=== PATIENT | female | born 1945 | race Caucasian/White ===

== ENCOUNTER 2018-01-03 11:05 | Emergency (ER) | payer MEDICARE, OTHER ==
--- NOTE | 2018-01-03 11:57 | ED.PDOC ---
History of Present Illness - General Chief Complaint: General Stated Complaint: Visual changes, ble swelling Time Seen by Provider: 01/03/18 11:32 Source: patient - History of Present Illness Initial Comments: SHE HASN'T SEEN A PHYSICIAN IN YEARS. TWELVE DAYS AGO SHE NOTED BLURRY VISION FROM THE LEFT SIDE AND LEFT SIDED PARESTHESIAS. AT TIME SHE WAS CONFUSED AND FORGETFUL AND ALSO NOTED WAS SLURRED SPEECH. THE SON AT THE BEDSIDE VOICES THAT THE SPEECH IS BETTER TODAY. THE LEFT SIDED PARESTHESIAS ALSO SEEM TO BE IMPROVED. THE PATIENT VOICES THAT LAST SUNDAY SHE WAS RUNNING A FEVER. Allergies/Adverse Reactions: Allergies NO KNOWN ALLERGY Allergy (Verified 01/03/18 11:26) Home Medications: Ambulatory Orders NK [NK] 01/03/18 Past Medical History (General) - Patient Medical History Hx Stroke: No Hx Congestive Heart Failure: No Hx Diabetes: No Hx MRSA: No Surgical History: cholecystectomy, Hysterectomy, other - Vaccination History Hx Influenza Vaccination: No Hx Pneumococcal Vaccination: No - Social History Hx Tobacco Use: Yes Family Medical History - Family History Mother Living Status: Hx Cardiac Disease: Yes Hx Family Diabetes: Yes Progress - Progress Progress: 01/03/18 14:05 THE PATIENT CONTINUES WITH BLURRY VISION. I HAVE DISCUSSED THE CASE WITH DR. LULU GIBBS FROM [facility]. AND HE HAS ACCEPTED THE PATIENT. - Results/Orders Results/Orders: CT OF THE BRAIN IS RESULTED: RIGHT OCCIPITAL EDEMA VS ISCHEMIC CHANGES NOTED. MRI RECOMMENDED. EKG: HR OF 88, TN INTERVAL OF 136, QRS OF 64, QTC OF 442, AXES OF 64 DEGREES: IMPRESSION: SINUS RHYTHM, PVC'S AND PAC'S. EVIDENCE OF AN ANTERIOR WALL WA AGE UNDETERMINED. Departure - Departure Clinical Impression: CVA (cerebral vascular accident) Qualifiers: CVA mechanism: unspecified Qualified Code(s): I63.9 - Cerebral infarction, unspecified Time of Disposition: 14:07 Disposition: Transfer to Hospital Condition: Fair Departure Forms: ED Discharge - Pt. Copy, Patient Portal Self Enrollment Referrals: Jacob Friedman MD [Primary Care Provider] - 1-2 Weeks Home Medications: Ambulatory Orders NK [NK] 01/03/18 Transfer to Outside Facility - Transfer Information Accepting Facility: [facility] Reason for Transfer: required specialist not available - NEEDS NEUROLOGY
--- NOTE | 2018-01-03 12:20 | RAD ---
EXAM DESCRIPTION: Portable Chest CLINICAL HISTORY: SOB COMPARISON: None TECHNIQUE: Single frontal view of chest FINDINGS: Lungs are well aerated bilaterally. Minimal extent of scattered nonspecific interstitial opacities throughout both lungs. No consolidation or pneumothorax nor costophrenic blunting on either side. Cardiac mediastinal contours are mildly prominent in appearance. IMPRESSION: No consolidation or pneumothorax in either lung Mild cardiomegaly. Electronically signed by: Dom Degroot MD 01/03/2018 12:18 PM [facility] ROOM OPERATOR
--- NOTE | 2018-01-03 12:25 | CT ---
EXAM DESCRIPTION:Head CLINICAL HISTORY:CONFUSION, LEFT SIDED PARESTHESIAS, LEFT EYE BLUR COMPARISON: None TECHNIQUE: Routine noncontrast brain CT protocol. Imaging was performed utilizing automated exposure control for dose reduction. FINDINGS: Suboptimal image quality due to motion artifacts. Subtle and heterogeneous hypoattenuation identified in chaney and white matter of the right occipital region. No intra-axial mass, hemorrhage, nor midline shift identified in brain. Chaney-white delineation is maintained elsewhere in both cerebral and cerebellar hemispheres. Ventricles are midline in position and normal in caliber. Basal cisterns and fissures are unremarkably patent. Cranium and skull base are intact without focal injury. No scalp abnormality is identified. Orbits are unremarkable in appearance bilaterally. Visualized portions of paranasal sinuses, middle ear cavities and mastoid air cells are well aerated IMPRESSION: Suboptimal study. Either age indeterminate ischemic change versus increased edema in the right occipital region. If there is concern of underlying stroke or mass lesion, then dedicated MRI evaluation should be considered for further assessment. No obvious intracranial hemorrhage nor midline shift detected in brain. Findings discussed with Dr. Ibarra at 12:20 PM Electronically signed by: Dom Degroot MD 01/03/2018 12:24 PM [facility]
[2018-01-03] MEDS ORDERED: NICOTINE PATCH 14 MG TD ONE (13:42)
[2018-01-03 14:24] VITALS: BP 146/98; O2SAT 97
[2018-01-03 15:05] VITALS: TEMP 97.9
== END 2018-01-03 14:50 | disposition short-term general hospital (02) ==
LOC: ER 11:05
DX: I63.9 Cerebral infarction, unspecified (principal); Z87.891 Personal history of nicotine dependence

== ENCOUNTER 2018-01-08 11:39 | Inpatient (IN) | payer MEDICARE ==
--- NOTE | 2018-01-08 12:25 | ED.PDOC ---
History of Present Illness - General Chief Complaint: Chest Pain/[place] Stated Complaint: elevated heart rate Time Seen by Provider: 01/08/18 12:22 Source: patient, family, old records Exam Limitations: no limitations - History of Present Illness Initial Comments: PER REVIEW OF RECENT INPT RECORDS, PT HAS KNOWN RECENT H/O AFIB. SHE WAS STARTED IN HOSP RECENTLY ON RATE CONTROL WITH METOPROLOL 25 MG, 1/2 TAB PO BID, WHICH SHE IS TAKING. SHE IS INTENTIONALLY NOT ON ANTICOAGULATION D/T FALL RISK. SHE IS ON ASA 325 PO QDAY. 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 IT WAS THOUGHT TO BE EMBOLIC FROM HER AFIB. PT HAS MADE ALMOST FULL RECOVERY. IN HOSP, AFIB PER CHART REVIEW WAS CONTROLLED ON METOPROLOL 12.5 MG PO BID. PT WENT TO PCP OFFICE TODAY FOR HOSP F/U AND WAS APPROPRIATELY SENT TO ER SINCE AFIB WAS NOTED TO BE UNCONTROLLED WITH RATE IN 160 - 170s. SHE HAS HYPERTHYROIDISM FOR WHICH SHE WAS RECENTLY STARTED ON METHIMAZOLE. 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 PT WAS STARTED ON NEW MEDS JANUARY 04 HOSP DISCHARGE, INCLUDING ASA 325, STATIN, METOPROLOL, METHIMAZOLE. Timing/Duration: constant Severity: moderate Location: other - ASYMPTOMATIC Activities at Onset: none Improving Factors: nothing Worsening Factors: nothing Aspirin Treatment Today: 325 mg x 1 Associated Symptoms: denies symptoms Allergies/Adverse Reactions: Allergies Diphenhydramine [From Benadryl] Allergy (Verified 01/08/18 12:24) Home Medications: Ambulatory Orders Aspirin [Aspirin EC Low Dose] 81 mg PO DAILY 01/08/18 Atorvastatin Calcium [Lipitor] 20 mg PO DAILY 01/08/18 Glucosamine-Chondroitin [Osteo Bi-Flex Regular Str 250-200 mg] 1 tab PO DAILY Methimazole 10 mg PO BID 01/08/18 Metoprolol Succinate [Metoprolol Succinate ER] 12.5 mg PO BID 01/08/18 Sodium Bicarbonate 650 mg PO BID 01/08/18 Review of Systems - Review of Systems Constitutional: States: no symptoms reported EENTM: States: no symptoms reported Respiratory: States: no symptoms reported Cardiology: States: no symptoms reported. Denies: chest pain, edema, palpitations, syncope Gastrointestinal/Abdominal: States: no symptoms reported Genitourinary: States: no symptoms reported Musculoskeletal: States: no symptoms reported Skin: States: no symptoms reported Neurological: States: no symptoms reported Endocrine: States: no symptoms reported Hematologic/Lymphatic: States: no symptoms reported All other Systems: Reviewed and Negative Past Medical History (General) - Patient Medical History Hx Stroke: No Hx Congestive Heart Failure: No Hx Diabetes: No Hx MRSA: No - Vaccination History Hx Influenza Vaccination: No Hx Pneumococcal Vaccination: No - Social History Hx Tobacco Use: Yes Family Medical History - Family History Mother Living Status: Hx Cardiac Disease: Yes Hx Family Diabetes: Yes Physical Exam - Physical Exam General Appearance: Alert, Comfortable Eyes, Ears, Nose, Throat Exam: PERRL/EOMI, normal ENT inspection Neck: full range of motion, supple Respiratory: chest non-tender, lungs clear, normal breath sounds Cardiovascular/Chest: no JVD, tachycardia, irregularly irregular Peripheral Pulses: radial,right: 1+ - THREADY AND IRREGULAR C/W AFIB., radial, left: 1+ - THREADY AND IRREGULAR C/W AFIB. Gastrointestinal/Abdominal: normal bowel sounds, non tender, soft Extremity: normal range of motion, normal inspection Neurologic: major gifts manager II-XII nml as tested, no motor/sensory deficits, alert, normal mood/affect, oriented x 3 Skin Exam: normal color, warm/dry Lymphatic: no adenopathy Progress - Results/Orders Results/Orders: GAVE DILTIAZEM 10 MG (0.25 MG/KG IV) X 1. AFTER 20 MIN, PULSE DECREASED FROM 160s TO 130s, STILL AFIB. THUS REPEATED 15 MG (0.35 MG/KG IV) X 1 AT 13:30. PULSE NOW DOWN TO 106. I ALSO GAVE METOPROLOL 25 MG PO X 1, SINCE SHE IS ON A SMALL DOSE OF 12.5 MG PO BID WHICH NEEDS TO BE TITRATED UP. TSH LOW AT < 0.06. EKG AFIB W/ RVR 167 BPM. OTHER DIAGNOSTICS NEG: COAGS, CARD ENZ, CBC, BMP, CXR. 14:00 PULSE REMAINING RATE CONTROLLED IN ED AT 98 - 105 BPM. Pt STATES SHE STILL SMOKES. I ADVISED SMOKING CESSATION. 14:53 Hospitalist called back and notified they will accept the pt for admission to better control the Afib rate. Thank you, Jonelle, and [facility]. Departure - Departure Clinical Impression: Atrial fibrillation with rapid ventricular response, Hyperthyroidism, Tobacco abuse, Recent cerebrovascular accident (CVA) Disposition: Admit Patient Condition: Fair Departure Forms: ED Discharge - Pt. Copy, Patient Portal Self Enrollment Diet: regular diet Activity: no pushing/pulling with affected limb Referrals: Jacob Friedman MD [Primary Care Provider] - 1-2 Weeks Home Medications: Ambulatory Orders Aspirin [Aspirin EC Low Dose] 81 mg PO DAILY 01/08/18 Atorvastatin Calcium [Lipitor] 20 mg PO DAILY 01/08/18 Glucosamine-Chondroitin [Osteo Bi-Flex Regular Str 250-200 mg] 1 tab PO DAILY Methimazole 10 mg PO BID 01/08/18 Metoprolol Succinate [Metoprolol Succinate ER] 12.5 mg PO BID 01/08/18 Sodium Bicarbonate 650 mg PO BID 01/08/18 Decision To Admit - Decistion To Admit Decision to Admit Reason: Admit from ER Decision to Admit Date: 01/08/18 Decision to Admit Time: 14:57
[2018-01-08] MEDS ORDERED: METOPROLOL TARTRATE 25 MG TAB PO ONE ×3 (13:24→21:00)
--- NOTE | 2018-01-08 13:30 | RAD ---
EXAM DESCRIPTION: Chest,1 View CLINICAL HISTORY: AFIB COMPARISON: January 03, 2018 IMPRESSION: Single AP portable upright view of the chest shows enlargement of the cardiac silhouette with mild prominence of the pulmonary vascularity similar to previous exam. Lungs are mildly hyperinflated. Increased interstitial markings are likely chronic are stable without acute infiltrate or consolidation. Scoliosis and degenerative changes of the spine are seen. No obvious pleural effusion or pneumothorax is seen. Electronically signed by: Marvin Ta MD 01/08/2018 1:29 PM [facility]
--- NOTE | 2018-01-08 15:21 | HP ---
SUPERVISING PHYSICIAN: Jacob Friedman M.D. CHIEF COMPLAINT: Rapid heart rate. HISTORY OF PRESENT ILLNESS: This is a 72 year-old female patient who was seeing her primary care physician, Dr. Tejal Friedman, due to recent hospitalization for a cerebrovascular accident where she had some left vision changes. She was also diagnosed with hyperthyroidism and which resulted in a rapid heart rate which most likely caused the embolic stroke from last week. She was given some Methimazole for her hyperthyroidism and put on metoprolol for rate control. She was given an aspirin but was not given an anticoagulant. In her physician's office today her heart rate was in the 160s and she was sent to the Emergency Room for a workup. In the Emergency Room, she was given several doses of Cardizem as well as given additional metoprolol. Her heart rate came down to the upper 90s and low 100s. Her WBCs were normal at 6.6 with hemoglobin 13.6 and hematocrit 39.9. Chemistries showed sodium 138 with potassium 3.7, chloride 108, carbon dioxide 24, anion gap 9.7, BUN 13, creatinine less than 0.4, glucose 120, magnesium 1.9. Cardiac enzymes were negative and TSH was less than 0.06. Chest x-ray showed no obvious pleural effusion or pneumothorax was seen. Lungs were mildly hyperinflated likely chronic in nature without acute infiltrate or consolidation. After she was stabilized, her blood pressure was 123/45. I was called for hospital admission. PAST MEDICAL HISTORY: 1. Atrial fibrillation. 2. Recent cerebrovascular accident. 3. Hyperthyroidism. 4. Hyperlipidemia. PAST SURGICAL HISTORY: 1. Cholecystectomy. 2. Bilateral salpingo-oophorectomy. 3. Hysterectomy. 4. section times 1. OUTPATIENT MEDICATIONS: Per the EMR and awaiting verification. ALLERGIES: NO KNOWN DRUG ALLERGIES. SOCIAL HISTORY: She is . She has 1 child. She lives in [place]. She is a daily smoker of 1 to 1-1/2 packs per day. She denies any ETOH or illicit drug use. REVIEW OF SYSTEMS: GENERAL: Negative for chills, fatigue or fever. HEENT: Positive for left eye vision changes secondary to the stroke. Negative for ear pain, sore throat or sinus symptoms. RESPIRATORY: Negative for cough, shortness of breath or wheezing. CARDIOVASCULAR: Positive for palpitations. Negative for chest pain or tachycardia. GASTROINTESTINAL: Negative for nausea, vomiting, diarrhea or constipation. GENITOURINARY: Negative for hematuria, nocturia or dysuria. NEUROLOGIC: Negative for headaches, dizziness or seizures. PHYSICAL EXAMINATION: VITAL SIGNS: She is afebrile, heart rate 118 to 122, blood pressure 95/61, respiratory rate 16, O2 sat is 95% on room air. GENERAL: This is a 72 year-old female patient who is in no acute distress. She is very thin. HEENT: Normocephalic and atraumatic. Pupils are equal and reactive. NECK: Supple without mass. RESPIRATORY: Essentially clear to auscultation although she is diminished at the bases and has distant breath sounds. CHEST: There is equal rise and fall of the chest with inspiration and expiration. CARDIOVASCULAR: Tachycardic rate, irregular rhythm. GASTROINTESTINAL: Abdomen is soft, nondistended. Bowel sounds are positive. EXTREMITIES: No cyanosis, clubbing or edema. NEUROLOGIC: She is awake, alert and oriented times three. LABORATORY: Labs and films are as per the history of present illness. ASSESSMENT: 1. Atrial fibrillation with rapid ventricular response most likely secondary to hyperthyroidism. 2. Hyperthyroidism on Methimazole. 3. History of recent cerebrovascular accident with left sided vision changes. 4. Tobacco abuse. 5. Hyperlipidemia. PLAN: We will admit the patient to the hospital. I spoke to Dr. Urrutia who will see her as a referral on an outpatient basis. He suggested that we control his rate with slowly increasing her metoprolol as her blood pressure tolerates to control the rate with beta blockers and to allow the Methimazole to work. At this point, will be continued symptomatic treatment. I have also ordered lab for in the morning as well as nicotine patch and some Ativan for anxiety. I will put her on 1 dose of Lovenox and then we will start her on Eliquis for anticoagulation. We have cautioned her not to ambulate without any assistance. Encouraged good pulmonary hygiene. Will continue to monitor the patient closely and followup as needed. Dr. Friedman is the collaborating physician available for consultation. #[id number] [facility]
[2018-01-08] MEDS ORDERED: IBUPROFEN 400 MG TAB PO ONE (15:22)
[2018-01-08] MEDS ORDERED: IBUPROFEN 200 MG TAB ONE (15:43)
[2018-01-08] MEDS ORDERED: IV SET AND CAP CHANGE INJ INJ SCH (17:00)
[2018-01-08] MEDS ORDERED: ENOXAPARIN SODIUM 40 MG/0.4 ML SYG SUBCU ONE (17:00)
[2018-01-08] MEDS ORDERED: PANTOPRAZOLE SODIUM IV 40 MG VIAL IV SCH (17:00)
[2018-01-08] MEDS: SODIUM CHLORIDE 0.9% (FLUSH) 10 ML SYG IV PRN (17:56)
[2018-01-08] MEDS: NICOTINE PATCH 14 MG TD SCH (18:40)
[2018-01-08] MEDS: APIXABAN 2.5 MG TAB PO SCH (20:50)
[2018-01-08] MEDS ORDERED: METOPROLOL TARTRATE 50 MG TAB PO ONE (21:00)
[2018-01-08] MEDS ORDERED: TEMAZEPAM 15 MG CAP PO ONE (22:45)
[2018-01-09] MEDS ORDERED: METOPROLOL TARTRATE INJ 5 MG/5 ML VIAL IV ONE ×2 (02:54→07:57)
[2018-01-09] MEDS ORDERED: SODIUM CHLORIDE 0.9% 500ML 500 ML IVS ONE (02:55)
[2018-01-09] MEDS ORDERED: SODIUM CHLORIDE 0.9% 1000ML 1,000 ML ONE (02:57)
[2018-01-09] MEDS: APIXABAN 2.5 MG TAB PO SCH ×2 (08:01→20:44)
[2018-01-09] MEDS: ASPIRIN EC 81 MG TAB PO SCH (08:01)
[2018-01-09] MEDS ORDERED: METOPROLOL TARTRATE 50 MG TAB PO ONE (08:47)
[2018-01-09] MEDS ORDERED: METOPROLOL TARTRATE 50 MG TAB PO SCH (09:00)
--- NOTE | 2018-01-09 15:23 | US ---
EXAM DESCRIPTION: Thyroid CLINICAL HISTORY: 72 years Female, hyperthyroidism COMPARISON: None. FINDINGS: The right thyroid lobe measures 6.1 cm in length. It is of diffusely heterogeneous internal echogenicity and contains several nodules, the largest measuring 12 mm diameter. The majority of these are solid or solid/cystic. No dominant nodule in the right thyroid lobe. The thyroid isthmus is thickened, measuring 9 mm AP diameter and is also diffusely heterogeneous internal echogenicity. The left thyroid lobe measures 5.5 cm in length and is of diffusely heterogeneous internal echogenicity. It contains a solid hypoechoic nodule in its inferior pole measuring up to 2.3 cm diameter with a single internal calcification. No additional left thyroid nodule is seen. IMPRESSION: Bilateral solid or solid/cystic thyroid nodules, the largest measuring 2.3 cm diameter inferior pole of the left thyroid lobe as detailed above. Biopsy of this largest nodule should be considered. Follow-up ultrasound in 6-9 months is recommended to document stability of the remaining nodules. Electronically signed by: Victorino Calvert MD 01/09/2018 3:23 PM [facility]
--- NOTE | 2018-01-09 16:06 | PN ---
DATE: 01/09/18 SUPERVISING PHYSICIAN: Jacob Friedman M.D. SUBJECTIVE: The patient is sitting up in her hospital bed. Denies any shortness of breath, nausea, vomiting, palpitations, chest pain. Earlier this morning she walked with a family member to the cafeteria to get some coffee. She did say she had some weakness at that time and her heart rate did go up to the 160s. She was taken back to her room in a wheelchair, but at this time has no complaints. OBJECTIVE: VITAL SIGNS: She is afebrile, heart rate 108, blood pressure 101/63 , respiratory rate 12, O2 sat is 96% on room air. RESPIRATORY: Essentially clear to auscultation bilaterally. She is slightly diminished at the bases. CARDIAC: Slightly tachycardic rate, irregular rhythm. GASTROINTESTINAL: Abdomen is soft, nondistended, non-tender. Bowel sounds are positive. EXTREMITIES: No cyanosis, clubbing or edema. NEUROLOGIC: She is awake, alert and oriented times three. LABORATORY: WBCs are 6.4 with hemoglobin 13.2, hematocrit 38.8. Platelets are slightly down to 126. Sodium 142, potassium 4.2, chloride 112, carbon dioxide 24, BUN 13, creatinine 0.53, glucose 131. TSH is less than 0.06 with a free T4 of 2.17. Free T4 index 0.26, T4 is 12.24 and T3 uptake is 46.9. All other labs and films have been reviewed via the EMR. ASSESSMENT: 1. Atrial fibrillation with rapid ventricular response most likely secondary to hyperthyroidism. 2. Hyperthyroidism on Methimazole. 3. History of recent cerebrovascular accident with left sided vision changes. 4. Tobacco abuse. 5. Hyperlipidemia. PLAN: We will continue present supportive care. I again spoke with Dr. Urrutia this morning and he recommended that she be taking 100 mg of metoprolol tartrate b.i.d. as her blood pressure tolerates it. We are titrating that up today. Overnight she had several issues with her heart rate going up as high as 160. She received 2 doses of Lopressor IV, one about 2:00 AM and about 8:00 AM with minimal results. I then spoke to Dr. Bear Longoria, incinerator plant supervisor in [place]. He recommended that we continue her present care and he could followup with her in 2 to 3 weeks after discharge. He said if we could not increase the dosage of metoprolol to a satisfactory amount, we chest use some Digoxin to help with rate control, but otherwise he would like to keep it to use of the beta jeanette. We will monitor her blood pressure closely. As long as she is stable on it with no dizziness or weakness, we may be able to discharge her in 1 to 2 additional days with followup to see Dr. Urrutia as well as Dr. Longoria. I have ordered some routine lab for in the morning. Will monitor her closely and follow as needed. Dr. Friedman is the collaborating physician available for consultation. #[id number] [facility]
[2018-01-09] MEDS: NICOTINE PATCH 14 MG TD SCH (18:00)
[2018-01-09] MEDS: SODIUM CHLORIDE 0.9% (FLUSH) 10 ML SYG IV PRN (20:44)
[2018-01-09] MEDS ORDERED: PANTOPRAZOLE SODIUM IV 40 MG VIAL IV SCH (21:00)
[2018-01-09] MEDS ORDERED: ATORVASTATIN 20 MG TAB PO SCH (21:00)
[2018-01-10 08:35] VITALS: O2SAT 94
[2018-01-10] MEDS ORDERED: SODIUM CHLORIDE 0.9% (FLUSH) 10 ML SYG IV SCH (09:00)
[2018-01-10] MEDS ORDERED: traMADol HCL 50 MG TAB PO PRN ×2 (09:06→09:16)
[2018-01-10] MEDS: APIXABAN 2.5 MG TAB PO SCH (09:20)
[2018-01-10] MEDS: ASPIRIN EC 81 MG TAB PO SCH (09:22)
[2018-01-10 12:36] VITALS: TEMP 97.8
--- NOTE | 2018-01-10 14:01 | DS ---
SUPERVISING PHYSICIAN: Jacob Friedman MD DISCHARGE DIAGNOSIS: 1. Atrial fibrillation with rapid ventricular response, most likely secondary to hyperthyroidism. 2. Hyperthyroidism on methimazole. 3. History of recent cerebrovascular accident with left sided vision changes. 4. Tobacco abuse. 5. Hyperlipidemia. HISTORY OF PRESENT ILLNESS: This is a 72-year-old female patient who was seen her primary care physician's office, Dr. Tejal Friedman, due to recent hospitalization for a cerebrovascular accident where she had some left vision changes. While in the hospital, she was diagnosed with hyperthyroidism which resulted in a rapid heart rate which most likely caused the embolic stroke that occurred last week. At that time, she was given methimazole for her hyperthyroidism and put on a low dose of metoprolol for rate control. She was given an aspirin but was not given an anticoagulant. In her physician's office , her heart rate was in the 160s and she was sent to the Emergency Room for a workup. In the Emergency Room, she was given several doses of Cardizem as well as additional metoprolol. Her heart rate came down to the upper 90s and low 100s. Her WBCs were normal at 6.6 with hemoglobin 13.6 and hematocrit 39.9. Chemistries showed sodium 138 with potassium 3.7, chloride 108, carbon dioxide 24, anion gap 9.7, BUN 13, creatinine less than 0.4, glucose 120, magnesium 1.9. Cardiac enzymes were negative and TSH was less than 0.06. Chest x-ray showed no obvious pleural effusion or pneumothorax was seen. Lungs were mildly hyperinflated most likely due to chronic disease without acute infiltrate or consolidation. After she was stabilized, her blood pressure was 123/45 and she was admitted to the hospital. HOSPITAL COURSE: Shortly after admission, her heart rate increased to the 140s and 150s. Her metoprolol was increased to 25 mg b.i.d. I spoke with Dr. Urrutia , green chain marker, about rate control in a particular with hyperthyroidism and he recommended that we increase her metoprolol up to 100 mg b.i.d. as her blood pressure would tolerate for rate control. Over the next 24 hours, her heart rate continued to be in the one-teens to 140s. I called head insulation board saw operator, Dr. Bear Longoria in [place], and he also recommended that we increase her metoprolol up to 100 mg b.i.d. as tolerated. He also recommended continued dosing of the methimazole as it was ordered and there were no additional medications needed at this time. He would also followup with her about her hyperthyroidism in 2 to [address] Urrutia, green chain marker, also recommended that he followup with her within a week or so of discharge. Over the last 24 hours, her metoprolol tartrate has been increased to 100 mg b.i.d. Her heart rate has been controlled in the 80s to 90s. She was also given an initial dose of Lovenox and then transitioned to Eliquis. Her NSAIDs were discontinued until she can followup with Dr. Urrutia. Her rate has been controlled for 24 hours now on the present dose of metoprolol and she can be discharged home with close followup with her primary care physician, Dr. Friedman , green chain marker, Dr. Urrtuia, and head insulation board saw operator, Dr. Bear Longoria. DISCHARGE PLAN: The patient will be discharged home in stable condition. She is strongly encouraged to continue her metoprolol and Eliquis as ordered. I have also instructed that she can take tramadol for pain instead of NSAIDs and to avoid those until she sees her green chain marker. She will also be sent home on some Protonix due to some GERD like symptoms while in the hospital. She has a followup appointment with Dr. Friedman on 01/14/18 at 3:15 PM. She has an appointment with Dr. Urrutia in the next [address] Friedman can get her an appointment with Dr. Longoria in 2 to 3 weeks. She is to increase her activity as tolerated. She is strongly encouraged to quit smoking. She is to return to the hospital or call Dr. Friedman's office for any further problems or complications. DISCHARGE MEDICATIONS: 1. Sodium bicarbonate. 2. Methimazole 10 mg b.i.d. 3. Glucosamine chondroitin. 4. Lipitor. 5. Eliquis. 6. Metoprolol tartrate 100 mg b.i.d. 7. Pantoprazole. 8. Tramadol. Dr. Friedman is the collaborating physician and available for consultation. #[id number] [facility]
[2018-01-10 15:40] VITALS: BP 118/72
[2018-01-10] MEDS ORDERED: PANTOPRAZOLE SODIUM TAB 40 MG PO SCH (16:30)
== END 2018-01-10 15:23 | disposition home or self-care (01) | DRG 310 ==
LOC: ER 11:39 → MS 15:19
PROVIDERS: ADMIT Nurse Practitioner Acute Care; ATTEND Nurse Practitioner Acute Care
DX: I48.91 Unspecified atrial fibrillation (principal); E05.90 Thyrotoxicosis, unspecified without thyrotoxic crisis or storm; E78.5 Hyperlipidemia, unspecified; H53.9 Unspecified visual disturbance; F41.9 Anxiety disorder, unspecified; F17.210 Nicotine dependence, cigarettes, uncomplicated; I69.398 Other sequelae of cerebral infarction; Z79.82 Long term (current) use of aspirin; Z79.899 Other long term (current) drug therapy

== ENCOUNTER 2018-01-10 20:27 | Inpatient (IN) | payer MEDICARE ==
--- NOTE | 2018-01-10 21:02 | RAD ---
EXAM DESCRIPTION: Chest,1 View CLINICAL HISTORY: afib, dizziness COMPARISON: 01/08/2018 FINDINGS: Cardiac silhouette is stable. There is consolidation at the medial right lung base with a tiny right pleural effusion. Left lung is clear. There is mild central pulmonary vascular engorgement. IMPRESSION: Right lung base consolidation. Electronically signed by: Chris Rivero 01/10/2018 9:01 PM CHILD ATTENDANT
--- NOTE | 2018-01-10 21:40 | RAD ---
EXAM DESCRIPTION: Chest,2 Views CLINICAL HISTORY: possible rml infiltrate, new COMPARISON: 01/10/2018 at 8:44 PM FINDINGS: Two views of the chest are submitted. Cardiac silhouette appears normal. There is atelectasis and consolidation at the posterior right lung base in the right lower lobe with mild atelectasis at the left lung base. No acute bony abnormality. There is no significant pulmonary vascular engorgement. IMPRESSION: Right lower lobe consolidation. Electronically signed by: Chris Rivero 01/10/2018 9:39 PM [facility]
[2018-01-10] MEDS ORDERED: cefTRIAXone SODIUM 1 GM in SODIUM CHL 0.9% 50ML MIN-BAG+ 50 ML IVPB ONE (21:47)
[2018-01-10] MEDS ORDERED: AZITHROMYCIN IV 500 MG in SODIUM CHLORIDE 0.9% 250ML 250 ML IVPB ONE (21:47)
[2018-01-10] MEDS ORDERED: SODIUM CHL 0.9% 50ML MIN-BAG+ 50 ML IVPB ONE (22:00)
[2018-01-10] MEDS ORDERED: SODIUM CHLORIDE 0.9% 250ML 250 ML ONE (22:00)
[2018-01-10] MEDS ORDERED: cefTRIAXone SODIUM 1 GM VIAL ONE (22:01)
[2018-01-10] MEDS ORDERED: AZITHROMYCIN IV 500 MG VIAL IVPB ONE (22:01)
[2018-01-11] MEDS ORDERED: SODIUM CHLORIDE 0.9% 1000ML 500 ML IVS ONE (00:43)
[2018-01-11] MEDS ORDERED: ONDANSETRON ODT 8 MG TAB SL ONE (00:46)
--- NOTE | 2018-01-11 02:42 | ED.PDOC ---
History of Present Illness - General Chief Complaint: Blood Pressure Problem Stated Complaint: head, chest pressure thought it was a stroke Time Seen by Provider: 01/10/18 20:28 Source: patient Exam Limitations: no limitations - History of Present Illness Initial Comments: the patient is a 72-year-old female presenting to the emergency room after she was sent home from being an inpatient today for atrial fibrillation with rapid ventricular rate related to uncontrolled hyperthyroidism. The patient had been placed appropriately on high-dose metoprolol. When the patient went home this afternoon and leaned over in her bathroom she became short of breath and dizzy and had a headache. She was concerned that she might be having a stroke so she showed back up the emergency room. upon arrival here the patient was largely rate control but she was in atrial fibrillation or more correctly in atrial flutter with a slowed to 2-1 conduction.the patient has also been reporting an increased cough. She does apparently have a history of some COPD. She feels weak and tired. Systolic blood pressures have ranged from 80-125 depending on her activity level. Timing/Duration: momentarily Severity: moderate Improving Factors: nothing Worsening Factors: nothing Associated Symptoms: cough Allergies/Adverse Reactions: Allergies Codeine Allergy (Verified 01/10/18 20:54) Diphenhydramine [From Benadryl] Allergy (Verified 01/10/18 20:54) Home Medications: Ambulatory Orders Atorvastatin Calcium [Lipitor] 20 mg PO DAILY 01/08/18 Glucosamine-Chondroitin [Osteo Bi-Flex Regular Str 250-200 mg] 1 tab PO DAILY Methimazole 10 mg PO BID 01/08/18 Sodium Bicarbonate 650 mg PO BID 01/08/18 Apixaban [Eliquis] 5 mg PO BID tab 01/10/18 Metoprolol Tartrate 100 mg PO BID #60 tab 01/10/18 Pantoprazole Tablet [Protonix] 40 mg PO DAILY@0630 #30 tab 01/10/18 Tramadol HCl 25 - 50 mg PO Q4H #30 tab 01/10/18 Review of Systems - Review of Systems Constitutional: States: malaise, weakness - generalized EENTM: States: no symptoms reported Respiratory: States: cough, short of breath - ith activity Cardiology: States: no symptoms reported Gastrointestinal/Abdominal: States: no symptoms reported Genitourinary: States: no symptoms reported Musculoskeletal: States: no symptoms reported Skin: States: no symptoms reported Neurological: States: no symptoms reported Endocrine: States: no symptoms reported All other Systems: No Change from Baseline Past Medical History (General) - Patient Medical History Hx Seizures: No Hx Stroke: Yes Hx Dementia: No Hx Asthma: No Hx of COPD: Yes Hx Cardiac Disorders: Yes Hx Congestive Heart Failure: No Hx Pacemaker: No Hx Hypertension: Yes Hx Thyroid Disease: Yes Hx Diabetes: No Hx Gastroesophageal Reflux: No Hx Renal Disease: No Hx of HIV: No Hx MRSA: No Surgical History: cholecystectomy, Hysterectomy - Vaccination History Hx Influenza Vaccination: No Hx Pneumococcal Vaccination: No - Social History Hx Tobacco Use: Yes Hx Alcohol Use: No Family Medical History - Family History Mother Living Status: Hx Cardiac Disease: Yes Hx Family Diabetes: Yes Physical Exam - Physical Exam General Appearance: Alert, Anxious, No apparent distress Eye Exam: bilateral normal Ears, Nose, Throat: hearing grossly normal, normal ENT inspection, normal pharynx Neck: full range of motion, thyromegaly Respiratory: no respiratory distress, no accessory muscle use, other - very mild right lower lobe rales Cardiovascular/Chest: normal peripheral pulses, no edema, other - initially the patient is in a slow atrial flutter with 2 to one conduction. She later cardioverted to a normal sinus rhythm. Peripheral Pulses: radial,right: 2+, radial,left: 2+, dorsalis pedis,right: 2+, dorsalis pedis,left: 2+ Gastrointestinal/Abdominal: non tender, soft Rectal Exam: deferred Back Exam: normal inspection, no CVA tenderness Extremity: normal range of motion, non-tender, normal inspection, no pedal edema , normal capillary refill Neurologic: barrow worker helper II-XII nml as tested, alert, normal mood/affect, oriented x 3 Skin Exam: normal color Comments: Vital Signs - 24 hr 01/10/18 01/10/18 01/10/18 20:30 21:27 22:15 Temperature 99.4 F Pulse Rate [ 105 H 108 H 75 monitor] Respiratory 16 16 24 Rate Blood Pressure 129/71 109/69 [Right Arm] O2 Sat by Pulse 97 96 95 Oximetry 01/10/18 01/10/18 01/10/18 23:00 23:21 23:22 Temperature Pulse Rate [ 71 73 76 monitor] Respiratory Rate Blood Pressure 104/63 97/52 [Right Arm] O2 Sat by Pulse 95 Oximetry 01/10/18 01/11/18 01/11/18 23:23 00:43 01:42 Temperature Pulse Rate [ 78 73 71 monitor] Respiratory 16 15 Rate Blood Pressure 115/59 88/58 84/54 [Right Arm] O2 Sat by Pulse 99 Oximetry Progress - Progress Progress: 01/11/18 02:46 the patient's a 72-year-old female presenting to the emergency room secondary to an episode of acute onset shortness of breath and head pain when leaning over that is most likely related to hypotension. The patient is most likely hypotensive due to the required high dose beta jeanette to control her A. fib with RVR in the face of severe hyperthyroidism. The patient has been given a small fluid bolus only as she does have significant congestive heart failure. The patient's troponin is a very tiny bit elevated consistent with her mild hypotension and cardiac strain. Troponin has not risen and the CK-MB is negative. She is not having any chest pain currently. Additionally the patient does appear to require a small to moderate right lower lobe pneumonia within the last few days. Blood culture has been performed. The patient has been started on Rocephin and azithromycin. The patient will be admitted for further management of above problems. Blood pressures on the systolic end are currently ranging from 95-105. admit for further management - Results/Orders Results/Orders: Vital Signs - 24 hr 01/10/18 01/10/18 01/10/18 20:30 21:27 22:15 Temperature 99.4 F Pulse Rate [ 105 H 108 H 75 monitor] Respiratory 16 16 24 Rate Blood Pressure 129/71 109/69 [Right Arm] O2 Sat by Pulse 97 96 95 Oximetry 01/10/18 01/10/18 01/10/18 23:00 23:21 23:22 Temperature Pulse Rate [ 71 73 76 monitor] Respiratory Rate Blood Pressure 104/63 97/52 [Right Arm] O2 Sat by Pulse 95 Oximetry 01/10/18 01/11/18 01/11/18 23:23 00:43 01:42 Temperature Pulse Rate [ 78 73 71 monitor] Respiratory 16 15 Rate Blood Pressure 115/59 88/58 84/54 [Right Arm] O2 Sat by Pulse 99 Oximetry chest x-ray shows a right lower lobe infiltrate that is new. She does have cardiomegaly consistent with her congestive heart failure. 01/10/18 21:00 EKG STAT EKG shows atrial fibrillation at a rate of 105 bpm. Old anterior infarct. No acute ST segment changes concerning for ischemia. The patient did later cardioverted to a normal sinus rhythm spontaneously 01/10/18 21:55 BLOOD CULTURE Stat Laboratory Results - last 24 hr 01/10/18 01/10/18 01/11/18 20:20 20:20 00:50 WBC 10.0 RBC 4.53 Hgb 14.2 Hct 42.2 MCV 93.1 MCH 31.4 H MCHC 33.7 RDW 14.4 Plt Count 161 MPV 9.3 Absolute Neuts (auto) 6.60 Absolute Lymphs (auto) 2.20 Absolute Monos (auto) 0.80 Absolute Eos (auto) 0.20 Absolute Basos (auto) 0.10 Neutrophils % 66.5 Lymphocytes % 22.4 Monocytes % 8.5 Eosinophils % 1.8 Basophils % 0.8 Sodium 139 Potassium 4.2 Chloride 105 Carbon Dioxide 23 Anion Gap 15.2 BUN 15 Creatinine 0.85 BUN/Creatinine Ratio 17.6 Random Glucose 169 H Serum Osmolality 282.3 Calcium 8.8 Magnesium 1.9 Total Bilirubin 0.8 AST 28 ALT 20 Alkaline Phosphatase 87 Creatine Kinase 99 82 CK-MB (CK-2) 3.6 2.8 CK-MB (CK-2) % Not Reportable Not Reportable Troponin I 0.07 H* 0.06 H B-Natriuretic Peptide 1890.0 H* Serum Total Protein 7.0 Albumin 4.0 Globulin 3.0 Albumin/Globulin Ratio 1.3 Departure - Departure Clinical Impression: Hypotension due to medication Pneumonia Qualifiers: Pneumonia type: due to unspecified organism Laterality: right Lung location: lower lobe of lung Qualified Code(s): J18.1 - Lobar pneumonia, unspecified organism Disposition: Admit Patient Referrals: Jacob Friedman MD [Primary Care Provider] - 1-2 Weeks Home Medications: Ambulatory Orders Atorvastatin Calcium [Lipitor] 20 mg PO DAILY 01/08/18 Glucosamine-Chondroitin [Osteo Bi-Flex Regular Str 250-200 mg] 1 tab PO DAILY Methimazole 10 mg PO BID 01/08/18 Sodium Bicarbonate 650 mg PO BID 01/08/18 Apixaban [Eliquis] 5 mg PO BID tab 01/10/18 Metoprolol Tartrate 100 mg PO BID #60 tab 01/10/18 Pantoprazole Tablet [Protonix] 40 mg PO DAILY@0630 #30 tab 01/10/18 Tramadol HCl 25 - 50 mg PO Q4H #30 tab 01/10/18 Decision To Admit - Decistion To Admit Decision to Admit Reason: Medical Nature Decision to Admit Date: 01/11/18 Decision to Admit Time: 02:50
--- NOTE | 2018-01-11 02:56 | HP ---
SUPERVISING PHYSICIAN: Jacob Friedman MD CHIEF COMPLAINT: Dizziness and lightheadedness. HISTORY OF PRESENT ILLNESS: This is a 72-year-old female patient who came to the Emergency Room this evening after having a dizzy spell with a near syncopal episode. She had been released from the hospital earlier that day due to rapid heart rate that was due to hyperthyroidism that caused her heart rate to be in the 160s. While in the hospital on her previous visit, her methimazole was continued for her hyperthyroidism and her rate was controlled by titrating up her metoprolol to 100 mg twice daily. She was also placed on Eliquis for stroke prevention. She had had a cerebrovascular accident the previous week and had been in the hospital in the [place] area. She was sent home on 12.5 mg of metoprolol and an aspirin. She had been on her high dose of metoprolol 100 mg b.i.d. for 36 hours and was then discharged home. While in the Emergency Room, she said she had taken her medication, she bent over and had a near syncopal episode. She felt very lightheaded with some mild chest discomfort. She came to the Emergency Room and in the Emergency Room, her blood pressure was 129/71. It dropped as low as 84/54. Her heart rate was 108 on admission to the Emergency Room, but since admission, it has been in the 60s and 70s. Respiratory rate 18. O2 saturation 94% on room air. CBC was basically within normal limits. Chemistries were basically within normal limits with the exception of her glucose slightly elevated at 169. Her initial troponin was 0.07 and subsequent troponin was 0.06. BNP was 1,890. She has a followup appointment next week with Dr. Friedman, her primary care physician, as well as Dr. Urrutia and she is to also see Dr. Longoria as an outpatient, but that appointment has not been made. Her chest x-ray shows right lower lobe consolidation. She was admitted to the hospital for right lower lobe pneumonia and new onset congestive heart failure. PAST MEDICAL HISTORY: 1. Atrial fibrillation. 2. Recent cerebrovascular accident. 3. Hyperthyroidism. 4. Hyperlipidemia. PAST SURGICAL HISTORY: 1. Cholecystectomy. 2. Bilateral salpingo-oophorectomy. 3. Hysterectomy. 4. section times one. OUTPATIENT MEDICATIONS: Per the EMR and awaiting verification. ALLERGIES: CODEINE, DIPHENHYDRAMINE. SOCIAL HISTORY: She is . She has ONE child. She lives in [place]. She is a daily smoker of 1 to 1-1/2 packs cigarettes per day. She denies any ETOH or illicit drug use. REVIEW OF SYSTEMS: GENERAL: Negative for chills, fever, fatigue. HEENT: Positive for nasal congestion. Negative for vision changes or sore throat. RESPIRATORY: Positive for cough. Negative for wheezing or shortness of breath. CARDIAC: Negative for chest pain, palpitations or tachycardia. GASTROINTESTINAL: Negative for nausea, vomiting, diarrhea, constipation. GENITOURINARY: Negative for hematuria, dysuria or nocturia. NEUROLOGIC: Positive for dizziness and near syncopal episode. Negative for headache or seizures. PHYSICAL EXAMINATION: VITAL SIGNS: Temperature 97.7. Pulse 61. Blood pressure 102/67. Respiratory rate 16. O2 sat 94% on room air. GENERAL: This is a 72-year-old female patient who is in no acute distress. She is very thin. HEENT: Normocephalic, atraumatic. Pupils are equal and reactive. NECK: Supple without mass. No discernible jugular venous distention. RESPIRATORY: A few scattered rhonchi throughout. She is slightly diminished at the bases. CHEST: There is equal rise and fall of the chest with inspiration and expiration. CARDIOVASCULAR: Regular rate and rhythm. GASTROINTESTINAL: Abdomen is soft, nondistended, nontender. Bowel sounds are positive. EXTREMITIES: No cyanosis, clubbing or edema. NEUROLOGIC: Awake, alert and oriented times three. LABORATORY: Labs and films are as per history of present illness with the exception of her third set of cardiac enzymes showing a troponin 0.05. All other labs and films have been reviewed via the EMR. ASSESSMENT: 1. Right lower lobe pneumonia, most likely community acquired, presently on Rocephin and azithromycin. 2. New onset of congestive heart failure with an elevated BNP on arrival and recent history of atrial fibrillation with rapid ventricular response most likely due to hyperthyroidism. 3. Atrial fibrillation, on metoprolol, recently titrated up to 100 mg of metoprolol tartrate b.i.d. as well as Eliquis. 4. Hyperthyroidism on methimazole. 5. History of recent cerebrovascular accident with left sided vision changes. 6. Tobacco abuse. 7. Hyperlipidemia. PLAN: We will admit the patient to the hospital. She is started on pneumonia protocol and we are giving good pulmonary hygiene as well as azithromycin and Rocephin. We will hold on the steroids for now as there is no wheezing. I have also started the congestive heart failure guidelines and in addition to her metoprolol, she is to get a very low dose of lisinopril. I have also given her some IV Lasix. We will repeat her labs as well as a chest x-ray in the morning. Her home medications have been re-started. We will monitor her closely when she ambulates as well as her heart rate. She will need close followup with her primary care physician, Dr. Friedman, and she has an appointment on 01/14/18, as well as Dr. Urrutia. She has an appointment with him on 01/15/18. Dr. Friedman will be getting her an appointment with Dr. Bear Longoria, dry room operator, to further monitor her hyperthyroidism. #[id number] [facility]
[2018-01-11] MEDS: NICOTINE PATCH 14 MG TD SCH (08:46)
[2018-01-11] MEDS: guaiFENesin ER TAB 600 MG TAB PO SCH ×2 (08:46→20:50)
[2018-01-11] MEDS ORDERED: SODIUM CHLORIDE 0.9% (FLUSH) 10 ML SYG IV PRN (08:49)
[2018-01-11] MEDS ORDERED: LEVALBUTEROL NEBS 1.25 MG/3 ML VIAL NEB PRN (08:50)
[2018-01-11] MEDS ORDERED: NITROGLYCERIN 0.4 MG 25 EA TAB SL PRN (08:54)
[2018-01-11] MEDS: LISINOPRIL 5 MG TAB PO SCH (09:41)
[2018-01-11] MEDS: FUROSEMIDE INJ 40 MG/4 ML VIAL IV SCH ×2 (09:41→17:03)
[2018-01-11] MEDS: SODIUM CHLORIDE 0.9% (FLUSH) 10 ML SYG IV SCH ×2 (09:43→20:51)
[2018-01-11] MEDS: PANTOPRAZOLE SODIUM IV 40 MG VIAL IV SCH (09:43)
[2018-01-11] MEDS: IV SET AND CAP CHANGE INJ INJ SCH (09:43)
[2018-01-11] MEDS: ENOXAPARIN SODIUM 40 MG/0.4 ML SYG SUBCU SCH (09:43)
[2018-01-11] MEDS ORDERED: traMADol HCL 50 MG TAB PO PRN (10:09)
[2018-01-11] MEDS ORDERED: SODIUM BICARBONATE 650 MG TAB ONE (10:18)
[2018-01-11] MEDS ORDERED: METOPROLOL TARTRATE 50 MG TAB ONE (10:18)
[2018-01-11] MEDS: APIXABAN 2.5 MG TAB PO SCH ×2 (10:21→20:50)
[2018-01-11] MEDS: SODIUM BICARBONATE 650 MG TAB PO SCH ×2 (10:26→20:51)
[2018-01-11] MEDS: METOPROLOL TARTRATE 50 MG TAB PO SCH ×2 (10:26→17:04)
[2018-01-11] MEDS: LEVALBUTEROL NEBS 1.25 MG/3 ML VIAL NEB SCH ×3 (11:30→20:53)
[2018-01-11] MEDS ORDERED: guaiFENesin 100 MG/5 ML 10 ML UD PO PRN (12:39)
[2018-01-11] MEDS ORDERED: SODIUM CHL 0.9% 50ML MIN-BAG+ 50 ML IVPB ONE (19:39)
[2018-01-11] MEDS ORDERED: cefTRIAXone SODIUM 1 GM VIAL ONE (19:39)
[2018-01-11] MEDS ORDERED: SODIUM CHLORIDE 0.9% 250ML 250 ML ONE (19:39)
[2018-01-11] MEDS ORDERED: AZITHROMYCIN IV 500 MG VIAL IVPB ONE (19:40)
[2018-01-11] MEDS: cefTRIAXone SODIUM 1 GM in SODIUM CHL 0.9% 50ML MIN-BAG+ 50 ML IVPB SCH (19:49)
[2018-01-11] MEDS: AZITHROMYCIN IV 500 MG in SODIUM CHLORIDE 0.9% 250ML 250 ML IVPB SCH (20:50)
[2018-01-12] MEDS: PANTOPRAZOLE SODIUM IV 40 MG VIAL IV SCH (06:36)
--- NOTE | 2018-01-12 07:26 | RAD ---
Clinical History : pna;CHF , MAIN Exam : PA and lateral views of the chest 01/12/2018 12:00 AM [facility] Comparisons : PA and lateral views of the chest January 10, 2018 Findings : There is stable diffuse peribronchial thickening throughout the lungs bilaterally. There is a moderate right and small left pleural effusion with increasing bibasilar airspace disease. The heart is normal in size. The mediastinal contours are normal in appearance. The thoracic spine is age appropriate. The shoulders are unremarkable. Limited evaluation of the upper abdomen demonstrates no gross abnormalities. Impression: 1. Pulmonary edema with bilateral pleural effusions. 2. Increasing right lower lobe airspace disease. Electronically signed by: Sadie Villagomez MD 01/12/2018 7:25 AM [facility]
[2018-01-12] MEDS: LEVALBUTEROL NEBS 1.25 MG/3 ML VIAL NEB SCH ×4 (07:27→20:20)
[2018-01-12] MEDS: SODIUM BICARBONATE 650 MG TAB PO SCH ×2 (08:28→20:13)
[2018-01-12] MEDS: METOPROLOL TARTRATE 50 MG TAB PO SCH ×2 (08:28→17:09)
[2018-01-12] MEDS: FUROSEMIDE INJ 40 MG/4 ML VIAL IV SCH ×2 (08:29→17:09)
[2018-01-12] MEDS: ATORVASTATIN 20 MG TAB PO SCH (08:29)
[2018-01-12] MEDS: ENOXAPARIN SODIUM 40 MG/0.4 ML SYG SUBCU SCH (08:29)
[2018-01-12] MEDS: guaiFENesin ER TAB 600 MG TAB PO SCH ×2 (08:29→20:13)
[2018-01-12] MEDS: APIXABAN 2.5 MG TAB PO SCH ×2 (08:29→20:13)
[2018-01-12] MEDS: NICOTINE PATCH 14 MG TD SCH (08:29)
[2018-01-12] MEDS: LISINOPRIL 5 MG TAB PO SCH (08:29)
[2018-01-12] MEDS: SODIUM CHLORIDE 0.9% (FLUSH) 10 ML SYG IV SCH ×2 (08:30→20:13)
[2018-01-12] MEDS: POTASSIUM CHLORIDE 10 MEQ TAB PO SCH (13:05)
--- NOTE | 2018-01-12 14:19 | PN ---
DATE: 01/12/18 SUBJECTIVE: The patient is completing a medication nebulizer treatment. She is able to talk in full sentences but occasionally has bouts of coughing. She states that the cough is from a cold and not from smoking. She is still smoking and does not wish to stop at this time. She states that when she receives the Lasix IV medication it makes her feel bad. It is a 40 mg dose which will be decreased with special attention to potassium levels. OBJECTIVE: Afebrile, pulse 75, blood pressure 132/76, pulse oximetry 95% on room air. Weight is 41.4 kilos. The patient is awake and alert. The son is also present. She understands that she does have a fairly significant pneumonia and seems to be a little better today compared to yesterday, though still having some difficulty with respirations. She has been a chronic smoker and stopped smoking about 3 days ago. LUNGS: Have diminished breath sounds with some rhonchi especially in the bases bilaterally. HEART: Tones somewhat distant. ABDOMEN: Soft. No organomegaly evident. EXTREMITIES: Quite thin though significant edema. Weight has been stable. LABORATORY: White count 5,300, hemoglobin 12.7. Chemistry shows potassium is down to 3.3 with supplementation started. BUN 15, creatinine 0.69, glucose 114. Albumin 3.2. Her initial troponin was slightly elevated with it returning back towards normal subsequently. Beta natriuretic peptide elevated at 1,890. Blood cultures are negative thus far. RADIOLOGY: Chest x-ray performed earlier today shows increasing right lower lobe airspace disease with emphysema present. ASSESSMENT: 1. Acute right lower lobe pneumonia, probable community acquired currently on Rocephin and azithromycin with blood cultures negative, awaiting sputum culture. 2. New onset of congestive heart failure with elevated BNP on arrival with recent episode of atrial fibrillation with rapid ventricular response probably related to the underlying significant hyperthyroid state requiring medication treatment. 3. Chronic atrial fibrillation on metoprolol for rate control with dosing pretty high resulting in some hypotensive episodes currently on Eliquis anticoagulation. 4. History of recent cerebrovascular accident with left sided vision changes currently on Eliquis anticoagulant therapy. She does not recall whether they did any carotid studies at the [facility]. 5. History of hyperthyroidism on Methimazole to assist with normalization, 6. Chronic tobacco abuse encouraged to stop. 7. History of hyperlipidemia. PLAN: Will continue current treatment. Decrease Lasix to 20 mg twice a day. Give potassium supplementation to start immediately. Try an ambulation study to evaluate for the need of oxygen. Will continue with Eliquis and stop Lovenox. Will require ongoing followup with Dr. Urrutia in the clinic. Increase activity level as possible with close observation. [facility][id number] [facility]
[2018-01-12] MEDS ORDERED: SODIUM CHLORIDE 0.9% 250ML 250 ML ONE (19:10)
[2018-01-12] MEDS ORDERED: SODIUM CHL 0.9% 50ML MIN-BAG+ 50 ML IVPB ONE (19:10)
[2018-01-12] MEDS ORDERED: AZITHROMYCIN IV 500 MG VIAL IVPB ONE (19:11)
[2018-01-12] MEDS ORDERED: cefTRIAXone SODIUM 1 GM VIAL ONE (19:11)
[2018-01-12] MEDS: cefTRIAXone SODIUM 1 GM in SODIUM CHL 0.9% 50ML MIN-BAG+ 50 ML IVPB SCH (19:33)
[2018-01-12] MEDS: AZITHROMYCIN IV 500 MG in SODIUM CHLORIDE 0.9% 250ML 250 ML IVPB SCH (20:12)
[2018-01-13] MEDS: PANTOPRAZOLE SODIUM IV 40 MG VIAL IV SCH (06:13)
[2018-01-13] MEDS: LEVALBUTEROL NEBS 1.25 MG/3 ML VIAL NEB SCH ×4 (07:58→20:05)
[2018-01-13] MEDS: APIXABAN 2.5 MG TAB PO SCH ×2 (09:01→20:56)
[2018-01-13] MEDS: guaiFENesin ER TAB 600 MG TAB PO SCH ×2 (09:02→20:56)
[2018-01-13] MEDS: LISINOPRIL 5 MG TAB PO SCH (09:02)
[2018-01-13] MEDS: SODIUM BICARBONATE 650 MG TAB PO SCH ×2 (09:02→20:56)
[2018-01-13] MEDS: NICOTINE PATCH 14 MG TD SCH (09:03)
[2018-01-13] MEDS: FUROSEMIDE INJ 40 MG/4 ML VIAL IV SCH ×2 (09:03→18:43)
[2018-01-13] MEDS: POTASSIUM CHLORIDE 10 MEQ TAB PO SCH (09:03)
[2018-01-13] MEDS: METOPROLOL TARTRATE 50 MG TAB PO SCH (09:03)
[2018-01-13] MEDS: SODIUM CHLORIDE 0.9% (FLUSH) 10 ML SYG IV SCH ×2 (09:03→20:57)
[2018-01-13] MEDS: ATORVASTATIN 20 MG TAB PO SCH (09:03)
--- NOTE | 2018-01-13 15:46 | PN ---
DATE: 01/13/18 SUBJECTIVE: The patient is sitting up in the bed and states that in many ways she feels a little bit better today compared to yesterday. Yesterday was sort of a bad day. This morning when she awoke she had a pulse in the 60s but it was shortly up in the 120s with a rapid atrial fibrillation. She had received a lower dose of metoprolol, only 50 mg this morning which eventually corrected the atrial fibrillation with rapid ventricular response to a rate in the mid 60s. For this reason, her dosage will be modified on an ongoing basis with evaluation overnight to see if it is adequate without the significant tiredness and fatigue that she was noting before with her metoprolol 100 mg b.i.d. OBJECTIVE: Afebrile, pulse 72, blood pressure 112/71, pulse oximetry 97% on room air. Weight is 41.4 kilos. GENERAL: The patient is awake and alert. Poor dental hygiene. Still with some shortness of breath, even with minimal exertion. Encouraged to increase activity today. Lungs have some expiratory slowing with expiratory wheezing as noted before. Some diminished breath sounds, especially in the right base with some rhonchi present. HEART: Tones are somewhat distant. Pulse rate is controlled now with a beta blockade having been increased slightly from its lowered dosage from earlier today. ASSESSMENT: 1. Acute right lower lobe pneumonia, probable community acquired currently on Rocephin and azithromycin with blood cultures negative, showing some clinical improvement yet infiltrate still on chest film with repeat in the morning. 2. New onset of congestive heart failure with markedly elevated BNP on arrival with recent episode of atrial fibrillation with rapid ventricular response, probably related to the underlying hyperthyroid state with beta blockade to continue with adjustment of dose. 3. Chronic atrial fibrillation on metoprolol for rate control with dosing very high resulting extreme fatigue with associated hypotension and slow pulse, being adjusted to a lower dose with observation to continue overnight. Currently on Eliquis anticoagulant. . 4. History of recent cerebrovascular accident with left-sided vision changes, currently on Eliquis anticoagulant therapy. She does not recall whether they did a carotid ultrasound at [facility] but this can be followed up with Dr. Friedman in the clinic. 5. History of hyperthyroidism on Methimazole to assist with normalization of the excessive hormone. 6. Chronic tobacco abuse encouraged to stop with the patient being less interested in stopping at this time. 7. History of hyperlipidemia. 8. Chronic obstructive pulmonary disease with an acute exacerbation showing some improvement. PLAN: Increase metoprolol to 75 mg in the morning and 50 mg of the tartrate in the evening. Repeat lab and chest x-ray in the morning for evaluation to check on further clearing as indicated. She will have followup with Dr. Urrutia with an appointment to be verified for this next Sunday in his [place] clinic. Further followup also with Dr. Longoria, ginseng farmer, encouraged and Dr. Friedman's office will be able to assist with that. Lasix has been decreased and recheck of potassium in the morning. Consider an echocardiogram as soon as possible if not having been done recently. Reevaluate in the morning and continued outpatient therapy if stable. #[id number] continue current treatment. Decrease Lasix to 20 mg twice a day. Give potassium supplementation to start immediately. Try an ambulation study to evaluate for the need of oxygen. Will continue with Eliquis and stop Lovenox. Will require ongoing followup with Dr. Urrutia in the clinic. Increase activity level as possible with close observation. [facility]
[2018-01-13] MEDS ORDERED: SODIUM CHLORIDE 0.9% 250ML 250 ML ONE (20:24)
[2018-01-13] MEDS ORDERED: cefTRIAXone SODIUM 1 GM VIAL ONE (20:25)
[2018-01-13] MEDS ORDERED: SODIUM CHL 0.9% 50ML MIN-BAG+ 50 ML IVPB ONE (20:25)
[2018-01-13] MEDS ORDERED: AZITHROMYCIN IV 500 MG VIAL IVPB ONE (20:26)
[2018-01-13] MEDS: cefTRIAXone SODIUM 1 GM in SODIUM CHL 0.9% 50ML MIN-BAG+ 50 ML IVPB SCH (20:51)
[2018-01-13] MEDS ORDERED: METOPROLOL TARTRATE 50 MG TAB PO SCH (21:00)
[2018-01-13] MEDS: AZITHROMYCIN IV 500 MG in SODIUM CHLORIDE 0.9% 250ML 250 ML IVPB SCH ×2 (21:00→21:30)
[2018-01-13] MEDS ORDERED: sulfaSALAzine TAB 500 MG TAB ONE (21:59)
[2018-01-13] MEDS ORDERED: AZITHROMYCIN 250 MG TAB PO SCH (22:00)
[2018-01-14] MEDS ORDERED: PANTOPRAZOLE SODIUM TAB 40 MG PO SCH (06:30)
--- NOTE | 2018-01-14 07:06 | RAD ---
EXAM: PA and LATERAL CHEST RADIOGRAPHS CLINICAL INDICATION: Pneumonia. COMPARISON: Chest radiographs of January 12, 2018. FINDINGS: Cardiac size and pulmonary vasculature are normal. Unchanged right lower lobe consolidation and small to moderate size right pleural effusion. The lungs are otherwise clear. No pleural effusions or pneumothorax. No free peritoneal gas layering under the hemidiaphragms. No suspicious hilar or mediastinal lymphadenopathy. Bones are normal. IMPRESSION: Unchanged findings suspicious for right lower lobe pneumonia. No pneumothorax. Electronically signed by: Bossman Gonzalez MD 01/14/2018 7:05 AM CDT
[2018-01-14] MEDS: POTASSIUM CHLORIDE 10 MEQ TAB PO SCH (07:52)
[2018-01-14] MEDS: LEVALBUTEROL NEBS 1.25 MG/3 ML VIAL NEB SCH ×2 (08:31→13:20)
[2018-01-14] MEDS ORDERED: METOPROLOL TARTRATE 50 MG TAB PO SCH (09:00)
[2018-01-14] MEDS: FUROSEMIDE INJ 40 MG/4 ML VIAL IV SCH (09:00)
[2018-01-14] MEDS: SODIUM BICARBONATE 650 MG TAB PO SCH (09:17)
[2018-01-14] MEDS: APIXABAN 2.5 MG TAB PO SCH (09:17)
[2018-01-14] MEDS: guaiFENesin ER TAB 600 MG TAB PO SCH (09:17)
[2018-01-14] MEDS: NICOTINE PATCH 14 MG TD SCH (09:19)
[2018-01-14] MEDS: IV SET AND CAP CHANGE INJ INJ SCH (09:19)
[2018-01-14] MEDS: LISINOPRIL 5 MG TAB PO SCH (09:19)
[2018-01-14] MEDS: ATORVASTATIN 20 MG TAB PO SCH (09:19)
[2018-01-14] MEDS: SODIUM CHLORIDE 0.9% (FLUSH) 10 ML SYG IV SCH (09:20)
[2018-01-14 15:26] VITALS: BP 108/72; TEMP 98.1; O2SAT 96
--- NOTE | 2018-01-23 20:06 | DS ---
SUPERVISING PHYSICIAN: Jacob Friedman M.D. DISCHARGE DIAGNOSIS: 1. Acute right lower lobe pneumonia community acquired showing improvement on Rocephin and azithromycin with blood cultures remaining negative as well as sputum cultures. 2. New onset of congestive heart failure with an elevated BNP on admission with an episode of atrial fibrillation with rapid ventricular response, probably related to significant hyperthyroid state requiring medication treatment with no echocardiogram available for current review, so unknown etiology. 3. Chronic atrial fibrillation on metoprolol for rate control with dosing fairly high resulting some hypotension and on Eliquis for anticoagulation. 4. History of recent cerebrovascular accident on the left side with vision changes on Eliquis anticoagulant therapy. 5. History of hyperthyroidism on Methimazole to assist with normalization. 6. Chronic tobacco abuse encouraged to stop smoking. 7. History of hyperlipidemia. REASON FOR HOSPITALIZATION: Ms. Yusuf is a 72-year-old female patient who came to the Emergency Room on 01/21/18 after she was having a dizzy spell and had a near syncopal episode. She had been recently released from the hospital earlier that day due to rapid heart rate that was due to hyperthyroidism that caused her heart rate to be in the 160s. While in the hospital on her previous visit, her methimazole was continued for her hyperthyroidism and her rate was controlled by titrating up her metoprolol to 100 mg twice daily. She was placed on Eliquis for stroke prevention. She had a cerebrovascular accident the previous week and had been in the hospital in the [place] area. She was sent home on 12.5 mg of metoprolol and an aspirin. She had been on her high dose of metoprolol 100 mg b.i.d. for 36 hours and was then discharged home. While in the Emergency Room, she said she had taken her medication, she bent over and had a near syncopal episode. She felt lightheaded with some mild chest discomfort. She came to the Emergency Room and in the Emergency Room, her blood pressure was found to be 129/71. It then dropped as low as 84/54. Her heart rate was 108 on admission to the Emergency Room, but since admission, it has been in the 60s and 70s. Respiratory rate 18. O2 saturation 94% on room air. Her initial troponin was 0.07 and subsequent troponin was 0.06. BNP being elevated at 1,890. She had a followup appointment next week with Dr. Friedman, her primary care physician, as well as Dr. Urrutia and she is to also see Dr. Longoria as an outpatient, but that appointment has not been made. Her chest x-ray shows right lower lobe consolidation. She was admitted to the hospital for right lower lobe pneumonia and new onset congestive heart failure. LABORATORY STUDIES: White count on admission was 10,500, at discharge was 5, 000. Hemoglobin and hematocrit were stable at 12.3 and 36.8, platelet count at 120,000. Differential showed to be within normal limits. Chemistries showed normal electrolytes with potassium 4.2, BUN 15 initially, creatinine 0.85, calcium 8.8, magnesium 1.9. Liver functions all showed to be within normal limits. She did have an elevated troponin initially on admission at 0.07. Repeat 6 hours later was at 0.06 and prior to discharge returning to baseline at 0.05. BNP was completed and did show it was elevated at 1890, prior to discharge it had gone down to 1440. At discharge, electrolytes were normal at 3.9 with BUN 10, creatinine 0.67. Urinalysis was noted to be within normal limits. MICROBIOLOGY: She had 2 sets of blood cultures that were negative at 5 days. RADIOLOGY: Chest x-ray in the Emergency Department prior to admission and per radiology interpretation showed right lower lobe consolidation. She had a repeat chest x-ray on the and per radiology interpretation showed pulmonary edema with bilateral pleural effusions and increasing right lower lobe airspace disease. EKG in the Emergency Department showed sinus tachycardia with supraventricular complexes. HOSPITAL COURSE: Ms. Yusuf was admitted as noted above for concerns for congestive heart failure and pneumonia along with hyperthyroidism. She was started on Rocephin and azithromycin and showed good clinical improvement. She was also given aggressive pulmonary hygiene with bronchodilators. She also had diuresis completed with Lasix IV initially and then it was titrated down to p.o. medications. Her metoprolol was modified to 75 in the morning and 50 at night which she was showing to be tolerating very well with a controlled ventricular rate. It was felt on the morning of discharge she clinically improved well enough to continue with outpatient treatment plan. PLAN: Ms. Yusuf was discharged on 01/14/18 with instructions to have close clinical followup with Dr. Friedman on 01/23/18 at 1330. She was to resume her home medications as instructed and take prescriptions as directed, and return to the hospital should any concerning symptoms. At discharge, new prescriptions included: 1. Cefdinir 300 mg twice daily. 2. Metoprolol 75 mg in the morning, 3. Metoprolol 50 mg at bedtime. Diet at discharge was regular diet as tolerated. Activity is to increase activity as tolerated. Condition on discharge was stable and improved. #[id number] MTDD
== END 2018-01-14 16:55 | disposition home or self-care (01) | DRG 194 ==
LOC: ER 20:27 → OBSVTOIN 01-11 02:56 → MS 01-11 02:56
PROVIDERS: ADMIT Nurse Practitioner Acute Care; ATTEND Nurse Practitioner Family
DX: J18.9 Pneumonia, unspecified organism (principal); J44.0 Chronic obstructive pulmonary disease with (acute) lower respiratory infection; J44.1 Chronic obstructive pulmonary disease with (acute) exacerbation; I50.9 Heart failure, unspecified; I48.91 Unspecified atrial fibrillation; E05.90 Thyrotoxicosis, unspecified without thyrotoxic crisis or storm; F41.9 Anxiety disorder, unspecified; I48.2 Chronic atrial fibrillation; F17.210 Nicotine dependence, cigarettes, uncomplicated; I95.9 Hypotension, unspecified; R51 Headache; T44.7X5A Adverse effect of beta-adrenoreceptor antagonists, initial encounter; E78.5 Hyperlipidemia, unspecified; I69.398 Other sequelae of cerebral infarction; Z79.02 Long term (current) use of antithrombotics/antiplatelets; Z79.899 Other long term (current) drug therapy; Z79.1 Long term (current) use of non-steroidal anti-inflammatories (NSAID); Z88.5 Allergy status to narcotic agent; Z88.8 Allergy status to other drugs, medicaments and biological substances; Z79.82 Long term (current) use of aspirin; Y92.009 Unspecified place in unspecified non-institutional (private) residence as the place of occurrence of the external cause

== ENCOUNTER → 2018-01-23 | Outpatient (CLI) | payer MEDICARE | LOC: GMAM 17:00 | PROVIDERS: ATTEND Family Medicine | DX: R06.02 Shortness of breath (principal); I48.2 Chronic atrial fibrillation; E03.9 Hypothyroidism, unspecified ==

== ENCOUNTER → 2018-01-31 | Outpatient (CLI) | payer MEDICARE | LOC: GMAM 11:56 | PROVIDERS: ATTEND Family Medicine | DX: R06.02 Shortness of breath (principal); E03.9 Hypothyroidism, unspecified ==

== ENCOUNTER → 2018-02-19 | Outpatient (CLI) | payer MEDICARE | LOC: GMAM 11:37 | PROVIDERS: ATTEND Family Medicine | DX: R06.02 Shortness of breath (principal); I10 Essential (primary) hypertension ==

== ENCOUNTER → 2018-07-03 | Outpatient (CLI) | payer MEDICARE ==
--- NOTE | 2018-07-03 14:53 | US ---
US HEAD NECK SOFT TISSUE CLINICAL STATEMENT: ENLARGED THYROID. COMPARISON: Ultrasound thyroid January 09, 2018. FINDINGS: Size right thyroid lobe: 5.5 x 2.4 x 2.4 cm Size left thyroid lobe: 5.2 x 3.8 x 3.6 cm Size isthmus: 0.8 cm Estimated total number of nodules greater than or equal to 1 cm: 2 Nodule 1: Size: 2.4 cm Location: Left Lower Composition: mixed cystic and solid: 1 point Echogenicity: hypoechoic: 2 points Shape: taller than wide: 3 points Margins: ill-defined: 0 points Echogenic foci: peripheral calcifications: 2 points Slightly enlarged since the prior study. ACR Total Points: >/= 7; ACR TI-RADS risk category: TR5 - highly suspicious nodule. Nodule 2: Size: 1.0 x 0.9 x 0.6 cm Location: Right Upper Composition: solid or almost completely solid: 2 points Echogenicity: hypoechoic: 2 points Shape: wider than tall: 0 points Margins: smooth: 0 points Echogenic foci: none: 0 points Stable since the prior study. ACR Total Points: 4; ACR TI-RADS risk category: TR4 - moderately suspicious nodule. Nodule 3: Size: 1.0 x 0.7 x 0.5 cm Location: Right Upper Composition: solid or almost completely solid: 2 points Echogenicity: hypoechoic: 2 points Shape: wider than tall: 0 points Margins: smooth: 0 points Echogenic foci: none: 0 points Stable since the prior study. ACR Total Points: 4; ACR TI-RADS risk category: TR4 - moderately suspicious nodule. In the soft tissue surrounding the thyroid gland, no distinct solid mass or cyst. No large calcifications or parenchymal edema. No overlying skin changes or abnormal vascularity. IMPRESSION: 1. Nodule 1: ACR TI-RADS 2017 Category 5. Recommend: Ultrasound-guided fine needle aspiration . Slightly larger since the prior study. Please see below.* 2. Nodule 2: ACR TI-RADS 2017 Category 4. Recommend: Follow-up ultrasound in 1 year. 3. Nodule 3: ACR TI-RADS 2017 Category 4. Recommend: Follow-up ultrasound in 1 year. Soft tissue around the thyroid gland is unremarkable. *ACR TI-RADS 2017 Recommendations: TR1: No FNA or follow up TR2: No FNA or follow up TR3: FNA if >/= 2.5 cm, follow up if 1.5 - 2.4 cm in 1, 3, and 5 years TR4: FNA if >/= 1.5 cm, follow up if 1.0 - 1.4 cm in 1, 2, 3, and 5 years TR5: FNA if >/= 1.0 cm, follow up if 0.5 - 0.9 cm every year for 5 years ACR TI-RADS recommends that no more than two nodules with the highest ACR TI-RADS total point should be biopsied and no more than four nodules should be followed. Electronically signed by: Chris Mckeon MD 07/03/2018 2:52 PM CDT
== END ==
LOC: US 10:38
PROVIDERS: ATTEND Internal Medicine Endocrinology, Diabetes & Metabolism
DX: E04.9 Nontoxic goiter, unspecified (principal)

== ENCOUNTER → 2018-11-18 | Outpatient (CLI) | payer MEDICARE | LOC: GMAM 16:55 | PROVIDERS: ATTEND Family Medicine | DX: E03.9 Hypothyroidism, unspecified (principal) ==

== ENCOUNTER 2019-04-11 13:22 | Emergency (ER) | payer MEDICARE, OTHER ==
[2019-04-11] MEDS ORDERED: ACETAMINOPHEN 500 MG TAB PO ONE (13:42)
--- NOTE | 2019-04-11 13:48 | ED.PDOC ---
History of Present Illness - General Chief Complaint: Trauma Stated Complaint: fell from standing landing on head in injuring wrist when she caught her self Time Seen by Provider: 04/11/19 13:43 Source: patient Exam Limitations: no limitations - History of Present Illness Initial Comments: patient comes in today for fall with injury to her left wrist. Patient states she was standing and just tripped, hitting her head in the front portion and catching herself with her left wrist. Head does not really hurt and she had no loss of consciousness, vision change, or emesis. However, she is on Eloquis and was always told even minor injuries could cause bleeding. Additionally, patient caught herself with her left arm and is now having severe pain to the left wrist. Patient denies any other significant discomfort. Patient has a significant past medical history of atrial fibrillation caused by hyperthyroidism, thyroid nodules, hypertension, abnormal blood sugar, back pain with degenerative disease, and history of strokes with residual vision loss in the left eye. Occurred: just prior to arrival Pain - Upper Extremity: severe: Wrist, left Method of Injury: fell Improving Factors: nothing Worsening Factors: movement Allergies/Adverse Reactions: Allergies Codeine Allergy (Verified 04/11/19 13:42) Diphenhydramine [From Benadryl] Allergy (Verified 04/11/19 13:42) Home Medications: Ambulatory Orders Atorvastatin Calcium [Lipitor] 20 mg PO DAILY 01/08/18 Glucosamine-Chondroitin [Osteo Bi-Flex Regular Str 250-200 mg] 1 tab PO DAILY 01/08/18 Methimazole 10 mg PO DAILY 01/08/18 Sodium Bicarbonate 650 mg PO BID 01/08/18 Apixaban [Eliquis] 2.5 mg PO BID 04/11/19 Furosemide [Lasix] 20 mg PO DAILY 04/11/19 Metoprolol Tartrate 50 mg PO BID 04/11/19 Potassium Chloride [Potassium Chloride ER] 8 meq PO DAILY 04/11/19 Review of Systems - Review of Systems Constitutional: States: no symptoms reported. Denies: chills, fever EENTM: States: no symptoms reported. Denies: eye pain, blurred vision, double vision Respiratory: States: no symptoms reported. Denies: cough, short of breath Cardiology: States: no symptoms reported. Denies: chest pain Gastrointestinal/Abdominal: States: no symptoms reported. Denies: abdominal pain, nausea, vomiting Genitourinary: States: no symptoms reported Musculoskeletal: States: see HPI Past Medical History (General) - Patient Medical History Hx Seizures: No Hx Stroke: Yes Hx Dementia: No Hx Asthma: No Hx of COPD: Yes Hx Cardiac Disorders: Yes Hx Congestive Heart Failure: No Hx Pacemaker: No Hx Hypertension: Yes Hx Thyroid Disease: Yes Hx Diabetes: No Hx Gastroesophageal Reflux: No Hx Renal Disease: No Hx of HIV: No Hx MRSA: No - Vaccination History Hx Influenza Vaccination: No Hx Pneumococcal Vaccination: No - Social History Hx Tobacco Use: Yes Hx Alcohol Use: No Family Medical History - Family History Mother Living Status: Hx Cardiac Disease: Yes Hx Family Diabetes: Yes Physical Exam - Physical Exam General Appearance: Alert, Anxious, Comfortable Eyes, Ears, Nose, Throat Exam: PERRL/EOMI, normal ENT inspection, TMs normal, pharynx normal Neck: non-tender, full range of motion, supple, normal inspection Cardiovascular/Respiratory: regular rate, rhythm, no M/R/G, normal peripheral pulses, no JVD, normal breath sounds, no respiratory distress Abdominal Exam: non-tender Elbow/Forearm Exam: abrasions - healing skin tears to forearm, patient states not from fall Wrist Exam: bone tenderness, limited ROM, pain - normal sensation with no , swelling Hand Exam: normal inspection, non-tender, no evidence of injury Neuro/Tendon: normal sensation Mental Status: alert, oriented x 3 Skin Exam: normal color Progress - Progress Progress: 04/11/19 14:38 patient refused pain control beyond maybe one or 1/2 of a Tylenol. We discussed her results and the need to eat as healthy as possible and no smoke to help the healing process.. Patient finally agrees to follow up at the clinic for a cast as she refuses anything more invasive than that. I did tell the patient that this splint is very temporary and she will need to follow up to get cast or more permanent splint. - Results/Orders Results/Orders: Patient Name: MATIAS TOVAR Gender: Female Date of : 1945 Referring Physician: JULIANA LAZAR Organization: [facility] Accession Number: [id number] Requested Date: April 11, 2019 13:43 Report Status: Final Requested Procedure: 1 Procedure Description: Head Modality: CT Findings Reporting MD: Mynor Aponte Fellow MD: Not available Dictation Time: Nub Card Tender: Not available C 13 Catapult Operator Date: Study: CT of the Head. Indication: fall on Eloquis Technique: Axial CT images of the head were acquired without intravenous contrast. This exam was performed according to our departmental dose-optimization program, which includes automated exposure control, adjustment of the mA and/or kV according to patient size and/or use of iterative reconstruction technique. Comparison: January 03, 2018. Findings: No acute ischemia, acute hemorrhage, mass, mass effect, midline shift, or extra-axial fluid collection identified by CT. Remote right occipital/posterior temporal infarct redemonstrated. Ventricles are normal in configuration without hydrocephalus. Patchy hypoattenuation of the periventricular and subcortical white matter noted. This is nonspecific but most consistent with chronic microvascular ischemic change. Global parenchymal volume loss and intracranial atherosclerosis noted as well. Paranasal sinuses are adequately aerated. Mastoid air cells are adequately aerated. Osseous structures and soft tissues are unremarkable. Impression: No acute intracranial abnormality by CT. Senescent changes. 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 Patient Name: MATIAS TOVAR Gender: Female Date of : 1945 Referring Physician: JULIANA LAZAR Organization: [facility] Accession Number: [id number] Requested Date: April 11, 2019 13:43 Report Status: Final Requested Procedure: 1 Procedure Description: Cervical Spine Modality: CT Findings Reporting MD: Mynor Aponte Fellow MD: Not available Dictation Time: Nub Card Tender: Not available C 13 Catapult Operator Date: Study: CT cervical spine. Indication: fall on Eloquis Technique: Axial CT images were acquired through the cervical spine without intravenous contrast. Coronal and sagittal reformats performed. This exam was performed according to our departmental dose-optimization program, which includes automated exposure control, adjustment of the mA and/or kV according to patient size and/or use of iterative reconstruction technique. Comparison: None. Findings: Vertebral body height maintained. No acute fracture or subluxation. Straightening cervical spine. Osseous fusion across the bilateral C4-C5 facet joints and left C5-C6 facet joint noted as well across the bilateral C7-T1 and likely T1-T2 facet joints. There is multilevel cervical disc disease, most pronounced at C6-C7 where there is severe disc space height loss, a small disc osteophyte complex produces, and at least mild spinal canal narrowing and mild bilateral neural foraminal narrowing. Changes of the thyroid gland better characterized on thyroid sonogram from July 03, 2018. Impression: No acute cervical fracture. Multilevel cervical disease as above. Dedicated MRI cervical spine could better evaluate as clinically indicated. Patient Name: MATIAS TOVAR Gender: Female Date of : 1945 Referring Physician: JULIANA LAZAR Organization: [facility] Accession Number: [id number] Requested Date: April 11, 2019 13:43 Report Status: Final Requested Procedure: 1 Procedure Description: Wrist,Left 2 Views Modality: CR Findings Reporting MD: Jacob Gaming Fellow MD: Not available Dictation Time: Nub Card Tender: Not available C 13 Catapult Operator Date: EXAM DESCRIPTION: Left wrist, 2 views CLINICAL HISTORY: Fall injury. Wrist pain FINDINGS/ IMPRESSION: Mildly comminuted buckle fracture of the distal radial metaphysis. Buckling of the radial and dorsal cortex primarily with mild impaction overlap. Dorsal tilt of the distal radial articular surface. No fracture of the ulna. No significant narrowing of the ulna/carpal joint space. No fracture of the carpal bones or metacarpals. Advanced arthrosis carpometacarpal joint of the thumb and moderate osteoarthritis STT joint Electronically signed by: Jacob Gaming MD 04/11/2019 2:27 PM CDT Departure - Departure Clinical Impression: Fracture of radius Qualifiers: Encounter type: initial encounter Radius location: distal Fracture type: closed Fracture morphology: unspecified fracture morphology Laterality: left Qualified Code(s): S52.502A - Unspecified fracture of the lower end of left radius, initial encounter for closed fracture Disposition: Discharge to Home or Self Care Condition: Fair Departure Forms: ED Discharge - Pt. Copy, Patient Portal Self Enrollment Instructions: DI for Trauma Referrals: Jacob Friedman MD [Primary Care Provider] - 1-2 Weeks Home Medications: Ambulatory Orders Atorvastatin Calcium [Lipitor] 20 mg PO DAILY 01/08/18 Glucosamine-Chondroitin [Osteo Bi-Flex Regular Str 250-200 mg] 1 tab PO DAILY 01/08/18 Methimazole 10 mg PO DAILY 01/08/18 Sodium Bicarbonate 650 mg PO BID 01/08/18 Apixaban [Eliquis] 2.5 mg PO BID 04/11/19 Furosemide [Lasix] 20 mg PO DAILY 04/11/19 Metoprolol Tartrate 50 mg PO BID 04/11/19 Potassium Chloride [Potassium Chloride ER] 8 meq PO DAILY 04/11/19 Additional Instructions: follow up in 2-3 days in clinic to have cast. do not remove splint unless decreased sensation or color change and then return to ER
--- NOTE | 2019-04-11 14:15 | CT ---
Study: CT of the Head. Indication: fall on Eloquis Technique: Axial CT images of the head were acquired without intravenous contrast. This exam was performed according to our departmental dose-optimization program, which includes automated exposure control, adjustment of the mA and/or kV according to patient size and/or use of iterative reconstruction technique. Comparison: January 03, 2018. Findings: No acute ischemia, acute hemorrhage, mass, mass effect, midline shift, or extra-axial fluid collection identified by CT. Remote right occipital/posterior temporal infarct redemonstrated. Ventricles are normal in configuration without hydrocephalus. Patchy hypoattenuation of the periventricular and subcortical white matter noted. This is nonspecific but most consistent with chronic microvascular ischemic change. Global parenchymal volume loss and intracranial atherosclerosis noted as well. Paranasal sinuses are adequately aerated. Mastoid air cells are adequately aerated. Osseous structures and soft tissues are unremarkable. Impression: No acute intracranial abnormality by CT. Senescent changes. 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 Electronically signed by: Mynor Aponte MD 04/11/2019 2:13 PM CDT
--- NOTE | 2019-04-11 14:29 | RAD ---
EXAM DESCRIPTION: Left wrist, 2 views CLINICAL HISTORY: Fall injury. Wrist pain FINDINGS/ IMPRESSION: Mildly comminuted buckle fracture of the distal radial metaphysis. Buckling of the radial and dorsal cortex primarily with mild impaction overlap. Dorsal tilt of the distal radial articular surface. No fracture of the ulna. No significant narrowing of the ulna/carpal joint space. No fracture of the carpal bones or metacarpals. Advanced arthrosis carpometacarpal joint of the thumb and moderate osteoarthritis STT joint Electronically signed by: Jacob Gaming MD 04/11/2019 2:27 PM CDT
--- NOTE | 2019-04-11 14:34 | CT ---
Study: CT cervical spine. Indication: fall on Eloquis Technique: Axial CT images were acquired through the cervical spine without intravenous contrast. Coronal and sagittal reformats performed. This exam was performed according to our departmental dose-optimization program, which includes automated exposure control, adjustment of the mA and/or kV according to patient size and/or use of iterative reconstruction technique. Comparison: None. Findings: Vertebral body height maintained. No acute fracture or subluxation. Straightening cervical spine. Osseous fusion across the bilateral C4-C5 facet joints and left C5-C6 facet joint noted as well across the bilateral C7-T1 and likely T1-T2 facet joints. There is multilevel cervical disc disease, most pronounced at C6-C7 where there is severe disc space height loss, a small disc osteophyte complex produces, and at least mild spinal canal narrowing and mild bilateral neural foraminal narrowing. Changes of the thyroid gland better characterized on thyroid sonogram from July 03, 2018. Impression: No acute cervical fracture. Multilevel cervical disease as above. Dedicated MRI cervical spine could better evaluate as clinically indicated. Electronically signed by: Mynor Aponte MD 04/11/2019 2:32 PM CDT
[2019-04-11 14:37] VITALS: BP 144/79; O2SAT 96
[2019-04-11 14:52] VITALS: TEMP 97.7
== END 2019-04-11 14:52 | disposition home or self-care (01) ==
LOC: ER 13:22
DX: S52.502A Unspecified fracture of the lower end of left radius, initial encounter for closed fracture (principal); M50.323 Other cervical disc degeneration at C6-C7 level; I69.312 Visuospatial deficit and spatial neglect following cerebral infarction; J44.9 Chronic obstructive pulmonary disease, unspecified; I51.9 Heart disease, unspecified; I10 Essential (primary) hypertension; E05.90 Thyrotoxicosis, unspecified without thyrotoxic crisis or storm; I48.91 Unspecified atrial fibrillation; Z87.891 Personal history of nicotine dependence; Z79.899 Other long term (current) drug therapy; Z88.5 Allergy status to narcotic agent; Z88.8 Allergy status to other drugs, medicaments and biological substances; W01.0XXA Fall on same level from slipping, tripping and stumbling without subsequent striking against object, initial encounter; Y92.89 Other specified places as the place of occurrence of the external cause; Z79.01 Long term (current) use of anticoagulants

== ENCOUNTER → 2019-04-17 | Outpatient (CLI) | payer OTHER ==
--- NOTE | 2019-04-17 17:56 | RAD ---
EXAM DESCRIPTION: Wrist,Left 3 Views CLINICAL HISTORY: 73 years, Female, M25.532 COMPARISON: Previous study April 11, 2019 FINDINGS: Left wrist 3 x-ray views is positive for healing fracture of the distal radius. The fracture line is obscured by bridging callus. No change in alignment since previous study. Slightly buckled appearance of the cortex. More smooth dorsal cortex is seen on the present study consistent with healing and remodeling. Advanced degenerative osteoarthrosis of the lateral carpus. Bones appear osteoporotic. Distal ulna and carpal bones appear intact. IMPRESSION: Healing fracture of the distal left radius. Electronically signed by: Manfred Curtis MD 04/17/2019 5:53 PM CDT
== END ==
LOC: RAD 08:52
PROVIDERS: ATTEND Orthopaedic Surgery
DX: S52.592A Other fractures of lower end of left radius, initial encounter for closed fracture (principal)

== ENCOUNTER → 2019-04-28 | Outpatient (CLI) | payer MEDICARE, OTHER ==
--- NOTE | 2019-04-28 11:26 | RAD ---
EXAM DESCRIPTION: Wrist,Left 3 Views CLINICAL HISTORY: 73 years, Female, S52.502D COMPARISON: April 17, 2019 TECHNIQUE: AP/ lateral/ oblique views of the left wrist. FINDINGS: Healing fracture of the distal radius with very slight dorsal angulation is little changed from examination 11 days earlier. Bones are mildly osteopenic with advanced hypertrophic degenerative changes at the base of the thumb at the carpal metacarpal articulation. Soft tissue swelling persists particularly on the lateral view. Nondisplaced tiny ulnar styloid fracture is suggested. IMPRESSION: 1. Incompletely healed fracture of the distal radius and probable tiny chip fracture of the ulnar styloid with little change from recent prior studies Electronically signed by: Jacob Nye MD 04/28/2019 11:23 AM CDT
== END ==
LOC: RAD 09:55
PROVIDERS: ATTEND Orthopaedic Surgery
DX: S52.502D Unspecified fracture of the lower end of left radius, subsequent encounter for closed fracture with routine healing (principal)

== ENCOUNTER → 2019-05-22 | Outpatient (CLI) | payer MEDICARE, OTHER ==
--- NOTE | 2019-05-22 12:05 | RAD ---
PROVIDED CLINICAL HISTORY/REASON FOR EXAM: S52.502D Findings: Number of images: Three Location: Left wrist Increased sclerosis and callus formation associated with the distal radius fracture. Stable alignment. No new fracture identified. Stable first CMC and STT osteoarthritis. No new fracture. Osteopenia. IMPRESSION: Healing distal left radius fracture. Electronically signed by: Temo Garcia MD 05/22/2019 12:03 PM CDT
== END ==
LOC: RAD 09:53
PROVIDERS: ATTEND Orthopaedic Surgery
DX: S52.502D Unspecified fracture of the lower end of left radius, subsequent encounter for closed fracture with routine healing (principal)

== ENCOUNTER → 2019-06-12 | Outpatient (CLI) | payer MEDICARE ==
--- NOTE | 2019-06-12 15:16 | RAD ---
EXAM DESCRIPTION: Wrist,Left 3 Views: CR/DR/XR CLINICAL HISTORY: 73 years Female CLOSED FX DISTAL END OF RADIUS COMPARISON: Left wrist radiographs 05/22/2019. TECHNIQUE: 3 VIEWS left wrist. AP. Lateral. Oblique. FINDINGS: Overall bone density is decreased. Impaction fracture of the left distal radius with dorsal flexion at the metadiaphysis. Callus formation and sclerosis. Fracture line is less radiolucent. Narrowing of the radiocarpal joint stable. Distal left ulna are unremarkable. IMPRESSION: Impaction fracture of the left distal radius with dorsal flexion. Fracture line more sclerotic since the prior study. Alignment stable. Electronically signed by: Chris Mckeon MD 06/12/2019 3:14 PM CDT
== END ==
LOC: RAD 09:53
PROVIDERS: ATTEND Orthopaedic Surgery
DX: S52.502D Unspecified fracture of the lower end of left radius, subsequent encounter for closed fracture with routine healing (principal)

== ENCOUNTER → 2019-08-25 | Outpatient (CLI) | payer MEDICARE | LOC: GMAM 12:15 | PROVIDERS: ATTEND Family Medicine | DX: E04.1 Nontoxic single thyroid nodule (principal); I10 Essential (primary) hypertension; E11.9 Type 2 diabetes mellitus without complications ==

== ENCOUNTER → 2019-09-12 | Outpatient (CLI) | payer MEDICARE | LOC: GMAM 10:10 | PROVIDERS: ATTEND Family Medicine | DX: I48.91 Unspecified atrial fibrillation (principal) ==

== ENCOUNTER → 2020-05-03 | Outpatient (CLI) | payer MEDICARE | LOC: GMAM 17:24 | PROVIDERS: ATTEND Family Medicine | DX: E03.9 Hypothyroidism, unspecified (principal) ==